=== PATIENT | female | born 1950 | race Caucasian/White ===

== ENCOUNTER → 2019-02-03 | Outpatient (CLI) | payer MEDICARE, SELFPAY ==
[2018-12-30 10:52] VITALS: BMI 24.4
--- NOTE | 2019-02-03 15:23 | BI_ITS ---
MAMMOGRAPHY - BILATERAL SCREENING REASON FOR EXAM: Female, 68 years old. Routine annual screening examination. PERTINENT HISTORY: Non-contributory. TECHNIQUE: Digital bilateral breast ferd (3D mammographic acquisition) in the CC and MLO projections. 2-D mediolateral oblique (MLO) and craniocaudad (CC) views of both breasts were obtained. CAD: Full Field Digital Mammography with Computer Added Detection was performed. COMPARISON: Comparison is made with prior outside examination dated December 30, 2017. FINDINGS: Breast Composition: The breasts are heterogeneously dense, which may obscure small masses. There are no dominant masses or suspicious calcifications. No other significant abnormalities are identified. There has been no significant change since the prior study. BI/SCREEN MAMM (CAD) W/FRED BILAT IMPRESSION: Stable bilateral screening mammogram. Yearly follow-up mammogram recommended. (A) ASSESSMENT CATEGORY: BIRADS Category 1: Negative. A letter regarding these results will be sent to the patient by the facility within 30 days. Approximately 10% of breast cancers are not detected by mammography. A normal mammogram should not delay biopsy of a clinically suspicious abnormality. [id number] Electronically Signed: Ethan Navarrete, at 8:27 EDT , Service support ,
== END | disposition home or self-care (01) ==
LOC: OPBI 15:21
PROVIDERS: Family Provider Family Medicine; PCP Family Medicine; Referring Provider Nurse Practitioner Women's Health; Visit Provider Nurse Practitioner Women's Health
DX: Z12.31 Encounter for screening mammogram for malignant neoplasm of breast (principal)
CPT/HCPCS: 77063; 77067

== ENCOUNTER 2020-11-10 06:40 | Outpatient (RCR) | payer MEDICARE, SELFPAY ==
[2018-12-30 10:52] VITALS: BMI 24.4
[2020-11-10] MEDS: COVID-19 VACC, MRNA(PFIZER)/PF 30 MCG/0.3 ML SYRINGE IM (09:48)
[2020-12-01] MEDS: COVID-19 VACC, MRNA(PFIZER)/PF 30 MCG/0.3 ML SYRINGE IM (09:32)
== END 2020-11-10 23:59 ==
LOC: IMMUN 06:40
PROVIDERS: PCP Family Medicine; Referring Provider Family Medicine; Visit Provider Family Medicine
DX: Z23 Encounter for immunization (principal)
CPT/HCPCS: 0001A; 0002A

== ENCOUNTER 2021-09-12 11:52 | Outpatient (CLI) | payer MEDICARE, SELFPAY ==
--- NOTE | 2021-09-12 11:56 | BI_ITS ---
MAMMOGRAPHY - BILATERAL SCREENING REASON FOR EXAM: Female, 70 years old. Routine annual screening examination. PERTINENT HISTORY: Non-contributory. TECHNIQUE: Digital bilateral breast fred (3D mammographic acquisition) in the CC and MLO projections. 2-D mediolateral oblique (MLO) and craniocaudad (CC) views of both breasts were obtained. CAD: Full Field Digital Mammography with Computer Added Detection was performed. COMPARISON: Comparison is made with prior study dated 02/03/2019. FINDINGS: Breast Composition: The breasts are heterogeneously dense, which may obscure small masses. There are no dominant masses or suspicious calcifications. No other significant abnormalities are identified. There has been no significant change since the prior study. BI/SCRN MAMM (CAD)W/FRED BILAT IMPRESSION: Stable bilateral screening mammogram. Yearly follow-up mammogram recommended. (A) ASSESSMENT CATEGORY: BIRADS Category 1: Negative. A letter regarding these results will be sent to the patient by the facility within 30 days. Approximately 10% of breast cancers are not detected by mammography. A normal mammogram should not delay biopsy of a clinically suspicious abnormality. [id number] Electronically Signed: Ethan Navarrete MD at 14:00 EST , Service support ,
== END 2021-09-12 23:59 | disposition short-term general hospital (02) ==
LOC: OPBI 11:54
PROVIDERS: PCP Family Medicine; Referring Provider Nurse Practitioner Women's Health; Visit Provider Nurse Practitioner Women's Health
DX: Z12.31 Encounter for screening mammogram for malignant neoplasm of breast (principal)
CPT/HCPCS: 77063; 77067

== ENCOUNTER → 2022-09-13 | Outpatient (CLI) | payer MEDICARE, SELFPAY ==
--- NOTE | 2022-09-13 09:37 | BI_ITS ---
MAMMOGRAPHY - BILATERAL SCREENING REASON FOR EXAM: Female, 71 years old. Routine annual screening examination. PERTINENT HISTORY: Non-contributory. TECHNIQUE: Digital bilateral breast fred (3D mammographic acquisition) in the CC and MLO projections. 2-D mediolateral oblique (MLO) and craniocaudad (CC) views of both breasts were obtained. CAD: Full Field Digital Mammography with Computer Added Detection was performed. COMPARISON: Comparison is made with prior study dated 09/12/2021 and 02/03/2019. FINDINGS: Breast Composition: The breasts are heterogeneously dense, which may obscure small masses. There are no dominant masses or suspicious calcifications. No other significant abnormalities are identified. There has been no significant change since the prior study. BI/SCRN MAMM (CAD)W/FRED BILAT IMPRESSION: Stable bilateral screening mammogram. Yearly follow-up mammogram recommended. (A) ASSESSMENT CATEGORY: BIRADS Category 1: Negative. A letter regarding these results will be sent to the patient by the facility within 30 days. Approximately 10% of breast cancers are not detected by mammography. A normal mammogram should not delay biopsy of a clinically suspicious abnormality. [id number] Electronically Signed: Ethan Navarrete MD at 10:31 EST ,
== END | disposition home or self-care (01) ==
LOC: OPBI 09:36
PROVIDERS: PCP Family Medicine; Visit Provider Nurse Practitioner Women's Health
DX: Z12.31 Encounter for screening mammogram for malignant neoplasm of breast (principal)
CPT/HCPCS: 77063; 77067

== ENCOUNTER → 2023-09-16 | Outpatient (CLI) | payer MEDICARE, SELFPAY ==
--- NOTE | 2023-09-16 10:04 | BI_ITS ---
MAMMOGRAPHY - BILATERAL SCREENING REASON FOR EXAM: Female, 72 years old. Routine annual screening examination. PERTINENT HISTORY: Non-contributory. TECHNIQUE: Digital bilateral breast fred (3D mammographic acquisition) in the CC and MLO projections. 2-D mediolateral oblique (MLO) and craniocaudad (CC) views of both breasts were obtained. CAD: Full Field Digital Mammography with Computer Added Detection was performed. COMPARISON: Comparison is made with prior study. 2022 and September 12, 2021. FINDINGS: Breast Composition: The breasts are heterogeneously dense, which may obscure small masses. There are no dominant masses or suspicious calcifications. No other significant abnormalities are identified. There has been no significant change since the prior study. BI/SCRN MAMM (CAD)W/FRED BILAT IMPRESSION: Stable bilateral screening mammogram. Yearly follow-up mammogram recommended. (A) ASSESSMENT CATEGORY: BIRADS Category 1: Negative. A letter regarding these results will be sent to the patient by the facility within 30 days. Approximately 10% of breast cancers are not detected by mammography. A normal mammogram should not delay biopsy of a clinically suspicious abnormality. [id number] Electronically Signed: Ethan Navarrete MD at 8:51 EST ,
--- OUTSIDE RECORDS SUMMARY | 2023-09-16 10:36 | XMS RPT_ITS | CCD ---
Author Name Unknown Address [facility] [employer] [id number] [place] [address] Organization [facility] Care Team Providers Care Top Dyeing Machine Tender Name Role Phone MELINDA BURROUGHS MD Primary Care Physician MELINDA BURROUGHS MD Attending Unavailable MELINDA BURROUGHS MD Primary Care Unavailable MELINDA BURRUOGHS MD Attending Unavailable MELINDA BURROUGHS MD Primary Care Unavailable Allergies Allergy Classification Reported Allergen(s) Allergy Type Date of Onset Reaction(s) Facility (2 sources) Clindamycin; Translations: [clindamycin] Drug Allergy Eruption of skin (disorder) [facility] (2 sources) Penicillin; Translations: [penicillins] Drug Allergy hives, rash, swelling [facility] Problems Problem Classification Problem Date Documented Da te Episodic/Chronic Malaise and fatigue (2 sources) Fatigue 07-31-2022 Episodic Other injuries and conditions due to external causes (2 sources) Foreign body in auditory canal 11-03-2019 Episodic Unclassified (2 sources) Patient encounter status 07-31-2022 Results Test Name Value Interpretation Reference Range Facil ity Encounters Encounter Date Encounter Type Care Provider Facility Start: 08-20-2022 End: 08-21-2022 ambulatory MELINDA BURROUGHS MD Facility:B Start: 08-20-2022 End: 08-20-2022 Patient encounter procedure MELINDA BURROUGHS MD [facility] Start: 08-07-2022 End: 08-08-2022 ambulatory MELINDA BURROUGHS MD Facility:B Start: 08-07-2022 End: 08-07-2022 Patient encounter procedure MELINDA BURROUGHS MD [facility] Procedures Date Procedure Procedure Detail Performing Clinician Start: 01-09-2018 Flexible fiberoptic sigmoidoscopy MELINDA BURROUGHS MD Start: 09-09-2012 Excision of lipoma o f shoulder MELINDA BURROUGHS MD Start: 09-09-2007 Colonoscopy MELINDA CARRERA MD Appendectomy MELINDA Whitman History of left oophorectomy MELINDA BURROUGHS MD History of tonsillectomy MICHEL BURROUGHS MD Immunizations Immunization Date Immunization Notes Care Provider [facility] 07-20-2022 influenza virus vaccine, unspecified formulation MELINDA BURROUGHS MD [facility] 06-01-2022 SARS-CoV-2 mRNA (tozinameran) vaccine MELINDA BURROUGHS MD [facility] 07-20-2021 influenza virus vaccine, unspecified formulation MELINDA BURROUGHS MD [facility] 06-09-2021 SARS-CoV-2 mRNA (tozinameran) vaccine MELINDA BURROUGHS MD [facility] 12-01-2020 SARS-CoV-2 mRNA (tozinameran) vaccine MELINDA BURROUGHS MD [facility] 11-10-2020 SARS-CoV-2 mRNA (tozinameran) vaccine MELINDA BURROUGHS MD [facility] Payers Date Payer Category Payer Unknown [id number] 1950 Unknown [id number] 1950 Unknown [id number] Social History Date Type Detail Facility Start: 11-03-2019 Tobacco smoking status Never s moked tobacco (finding) [facility] Sex Assigned At Female [facility] Clinical Note 08-20-2022 Note Date & Type Note Facility 08-20-2022 Note ORIGINAL EXAMINATION: BONE DENSITOMETRY 08/20/2022 2:31 pm TECHNIQUE: A bone density dual x-ray absorptiometry (DEXA) scan was performed of the lumbar spine and left hip. COMPARISON: DEXA 07/08/2020 HISTORY: ORDERING SYSTEM PROVIDED HISTORY: Reason for Exam: Osteoporosis Screening FINDINGS: BMD (g/cm2) Lumbar Spine L1-L4: 0.765. T Score Lumbar Spine L1-L4: -2.6 BMD (g/cm2) Left Femoral Neck: 0.637. T Score Left Femoral Neck: -1.9 BMD (g/cm2) Left Hip: 0.816. T Score Left Hip: -1.0 BMD Change from previous Hip: -8.8% BMD Change from previous Lumbar spine: No significant change IMPRESSION: Osteoporosis by WHO criteria. *By the World Health Organization criteria: (Comparing with young normal sex matched population) - Normal: T-score at or above -1 SD (standard deviation) - Osteopenia: T-score between -1 and -2.5 SD - Osteoporosis: T-score at or below -2.5 SD I have personally reviewed the images of this examination and agree with the resident's findings and interpretation. Interpreted by: Tate Moore DO Preliminary Report By: Shaila Fleming Electronically signed By Tate Moore DO Dictated Date: 08/20/2022 2:40:28 PM Prelim Date: 08/20/2022 3:06:36 PM Sign Date: 08/20/2022 3:06:36 PM Ordering Provider: MELINDA BURROUGHS [facility] Clinical Note 08-20-2022 Note Date & Type Note Facility 08-20-2022 Note ORIGINAL EXAMINATION: BONE DENSITOMETRY 08/20/2022 2:31 pm TECHNIQUE: A bone density dual x-ray absorptiometry (DEXA) scan was performed of the lumbar spine and left hip. COMPARISON: DEXA 07/08/2020 HISTORY: ORDERING SYSTEM PROVIDED HISTORY: Reason for Exam: Osteoporosis Screening FINDINGS: BMD (g/cm2) Lumbar Spine L1-L4: 0.765. T Score Lumbar Spine L1-L4: -2.6 BMD (g/cm2) Left Femoral Neck: 0.637. T Score Left Femoral Neck: -1.9 BMD (g/cm2) Left Hip: 0.816. T Score Left Hip: -1.0 BMD Change from previous Hip: -8.8% BMD Change from previous Lumbar spine: No significant change IMPRESSION: Osteoporosis by WHO criteria. *By the World Health Organization criteria: (Comparing with young normal sex matched population) - Normal: T-score at or above -1 SD (standard deviation) - Osteopenia: T-score between -1 and -2.5 SD - Osteoporosis: T-score at or below -2.5 SD I have personally reviewed the images of this examination and agree with the resident's findings and interpretation. Interpreted by: Tate Moore DO Preliminary Report By: Shaila Fleming Electronically signed By Tate Moore DO Dictated Date: 08/20/2022 2:40:28 PM Prelim Date: 08/20/2022 3:06:36 PM Sign Date: 08/20/2022 3:06:36 PM Ordering Provider: MELINDA BURROUGHS [facility] Evaluation + Plan note Radiology Note Date & Type Note Facility Evaluation + Plan note Future Appointments Appointment Date:08/20/2022 02:30:00 PM Scheduled Provider: Location:[facility] Appointment Type:BD Bone Density DEXA Axial Skeleton Future Scheduled TestsBD Bone Density DEXA Axial Skeleton 08/20/22 [facility] Hospital course Narrative Note Date & Type Note Facility Hospital course Narrative No data available for this section [facility] Hospital Discharge instructions Note Date & Type Note Facility Hospital Discharge instructions No data available for this section [facility] Progress note Note Date & Type Note Facility Progress note No data available for this section [facility] Summary Purpose Family History No Family History Records Found Advance Directives No Advanced Directives Records Found Additional Source Comments Care Team (unrecognized sect ion and content) Care Team Personnel Name: MELINDA BURROUGHS MD Position: P4 Physician - Primary Care Member Role: Primary Care Physician Address: Address: [facility] [address] Care Team Related Persons Name: AMADO SOLIS Care Team Personnel Name: MELINDA BURROUGHS MD Position: P4 Physician - Primary Care Member Role: Primary Care Physician Address: Address: [facility] [address] Care Team Related Persons Name: AMADO SOLIS INFORMATION SOURCE (unrecogn ized section and content) FOR RECORDS PERTAINING TO PATIENTS WHO ARE OR HAVE BEEN ENROLLED IN A CHEMICAL DEPENDENCY/SUBSTANCEABUSE PROGRAM, SOME INFORMATION MAY BE OMITTED. This clinical summary was aggregated from multiple sources. Caution should be exercised in using it in the provision of clinical care. This summary normalizes information from multiple sources, and as a consequence, information in this document may materially change the coding, format and clinical context of patient data. In addition, data may be omitted in some cases. CLINICAL DECISIONS SHOULD BE BASED ON THE PRIMARY CLINICAL RECORDS. [facility] [employer] [facility]. provides no warranty or guarantee of the accuracy or completeness of information in this document.
== END | disposition home or self-care (01) ==
LOC: OPBI 10:04
PROVIDERS: PCP Family Medicine; Referring Provider Nurse Practitioner Women's Health; Visit Provider Nurse Practitioner Women's Health
DX: Z12.31 Encounter for screening mammogram for malignant neoplasm of breast (principal)
CPT/HCPCS: 77063; 77067

== ENCOUNTER → 2024-09-17 | Outpatient (CLI) | payer MEDICARE, SELFPAY ==
--- NOTE | 2024-09-17 14:07 | BI_ITS ---
MAMMOGRAPHY - BILATERAL SCREENING REASON FOR EXAM: Female, 73 years old. Routine annual screening examination. PERTINENT HISTORY: Non-contributory. TECHNIQUE: Digital bilateral breast fred (3D mammographic acquisition) in the CC and MLO projections. 2-D mediolateral oblique (MLO) and craniocaudad (CC) views of both breasts were obtained. CAD: Full Field Digital Mammography with Computer Added Detection was performed. COMPARISON: Comparison is made with prior study dated September 16, 2023 and September 13, 2022. FINDINGS: Breast Composition: The breasts are heterogeneously dense, which may obscure small masses. There are no dominant masses or suspicious calcifications. Stable bilateral fat containing axillary lymph nodes. No other significant abnormalities are identified. There has been no significant change since the prior study. BI/SCRN MAMM (CAD)W/FRED BILAT IMPRESSION: Stable bilateral screening mammogram. Yearly follow-up mammogram recommended. (A) ASSESSMENT CATEGORY: BIRADS Category 2: Benign. A letter regarding these results will be sent to the patient by the facility within 30 days. Approximately 10% of breast cancers are not detected by mammography. A normal mammogram should not delay biopsy of a clinically suspicious abnormality. [id number] Electronically Signed: Ethan Navarrete MD at 14:54 EST ,
== END | disposition home or self-care (01) ==
LOC: OPBI 14:06
PROVIDERS: PCP Family Medicine; Referring Provider Nurse Practitioner Women's Health; Visit Provider Nurse Practitioner Women's Health
DX: Z12.31 Encounter for screening mammogram for malignant neoplasm of breast (principal)
CPT/HCPCS: 77063; 77067

== ENCOUNTER 2025-03-01 08:52 | Inpatient (IN) | payer MEDICARE, SELFPAY ==
[2025-03-01] VITALS (13 sets, daily range): BP systolic 132–179; BP diastolic 61–87; PULSE 54–60; RESP 11–18; TEMP -17.7–36.8; O2SAT 99–100; BMI 22.2; BMI 19.3
--- NOTE | 2025-03-01 08:55 | CT_ITS ---
PROCEDURE: STROKE BRAIN/HEAD WITHOUT CONT 03/01/2025 REASON FOR EXAM: NEURO DEFICIT, ACUTE, STROKE SUSPECTED TECHNIQUE: STROKE BRAIN/HEAD WITHOUT CONT Coronal and Sagittal reconstruction series were provided. One or more dose reduction techniques were used (e.g., Automated exposure control, adjustment of the mA and/or kV according to patient size, use of iterative reconstruction technique. RADIATION DOSE SUMMARY: CTDlvol: 44.99 mGy DLP: 812.98 mGycm COMPARISON: None FINDINGS: Brain: Low density in the periventricular white matter suggests mild chronic small vessel ischemic changes. Focal hypodensity seen in the insular cortex of the right temporal lobe. This may represent localized ischemic change. CSF Spaces: Mild generalized cerebral atrophy Sinuses/Mastoids: Clear at visualized levels Bones: Unremarkable CT/STROKE Brain/Head without Cont IMPRESSION: Focal decreased attenuation in the insular cortex of the right temporal lobe. Ischemic change should be ruled out. Red Alert: FOCAL HYPODENSITY rIGHT INSULAR CORTEX The critical information above was relayed directly by me by telephone to Otto Szymanski on 03/01/2025 at 9:05 am with readback verification. Reading Location: [id number]
--- NOTE | 2025-03-01 08:55 | CT_ITS ---
PROCEDURE: STROKE CTA HEAD AND NECK W/CON 03/01/2025 REASON FOR EXAM: NEURO DEFICIT, ACUTE, STROKE SUSPECTED TECHNIQUE: STROKE CTA HEAD AND NECK W/CON Multiplanar Sagittal and Coronal images were obtained. CONTRAST: Isovue 370 VOLUME: 100 mL One or more dose reduction techniques were used (e.g., Automated exposure control, adjustment of the mA and/or kV according to patient size, use of iterative reconstruction technique). RADIATION DOSE SUMMARY: CTDlvol: 15.2 mGy DLP: 508.62 mGycm COMPARISON: Prior CT scan of the head done earlier in the day. FINDINGS: Aortic Arch: Normal size and branching pattern. No significant atherosclerotic plaque. Brachiocephalic and Subclavians: Unremarkable RIGHT Carotid: Right CCA: Unremarkable. Right ICA: Unremarkable. Right ECA: Unremarkable. LEFT Carotid: Left CCA: Unremarkable. Left ICA: Unremarkable. Left ECA: Unremarkable. Vertebrals: Codominant. Arise from the subclavians. Both vertebrals form the basilar. RIGHT Vertebral: Unremarkable. LEFT Vertebral: Unremarkable. Anatomy: [place] anatomy is normal. Aneurysm or avm: No intracranial aneurysms or large vascular malformations are identified. Anterior cerebral arteries: Unremarkable: Middle cerebral arteries: Unremarkable. Basilar artery: Unremarkable. Posterior cerebral arteries: Unremarkable. Other major branches of the posterior circulation: Unremarkable. Major venous structures: Unremarkable. Other findings: Diffuse heterogeneous enlargement of the thyroid gland more prominent on the left side with a substernal extension. CT/STROKE CTA Head AND Neck W/Con IMPRESSION: No significant stenosis seen. Diffuse heterogeneous enlargement of thyroid worse on the left side with subste rnal extension on the left side. Red Alert: No sig stenosis seen The critical information above was relayed directly by me by telephone to Otto Szymanski on 03/01/2025 at 9:28 am with readback verification. Reading Location: [id number]
--- NOTE | 2025-03-01 08:55 | EKG12_ITS ---
Test Reason : STROKE ALERT Blood Pressure : */* mmHG Vent. Rate : 60 BPM Atrial Rate : 60 BPM P-R Int : 158 ms QRS Dur : 88 ms QT Int : 408 ms P-R-T Axes : 42 -11 28 degrees QTcB Int : 408 ms Normal sinus rhythm Inferior infarct , age undetermined Cannot rule out Anterior infarct , age undetermined Abnormal ECG Confirmed by TIKI MEZA, CARLOS ([id number]), rewrite editor AVEL LAIRD ([id number]) on 03/02/2025 11:04:41 AM Referred By: Confirmed By: CARLOS FAIRBANKS MD
--- NOTE | 2025-03-01 09:10 | EDS_ITS ---
HPI History of Present Illness Chief Complaint: Stroke Alert Narrative Narrative: Patient is a 74-year-old female with a past medical history of goiter thyroid, lichen sclerosus who presented to the emergency department with a chief complaint of left facial droop, left arm weakness and falling to the left with changes of vision out of her left eye. Patient states that her symptoms started around 8:45 AM when she was walking through the store she states that her had to help her. By the time she arrived here to the emergency department she states that her symptoms have resolved. She states that she has never had anything this happen before. Patient denies any blood thinning medications. [facility] Medical History Goiter Age related osteoporosis Uterine cyst Chronic bronchitis Infertility Lichen sclerosus Home Medications ?Medication ?Instructions ?Recorded ?Last Taken ?Type estradiol 0.01% (0.1 mg/gram) See Rx Instructions vagi nal 04/30/24 02/27/25 Rx vaginal cream (Estrace) .COMPLEX #42.5 grams cholecalciferol (vitamin D3) 1,250 50,000 unit PO .COM PLEX 03/01/25 02/25/25 History mcg (50,000 unit) capsule mecobalamin (vitamin B12) 1,000 1,000 mcg PO DAILY 03/01/25 History mcg lozenges vitamin K2 45 mcg capsule 45 mcg PO DAILY 03/01/25 History Allergy/AdvReac Type Severity Reaction Status Date / Time Penicillins Allergy Severe Angioedema Verified 03/01/25 09:23 Family History Grandmother Diabetes Mother Lung fibrosis Father , from Heart Attack at age 66 Heart disease Grandfather Heart disease Surgical History History of left oophorectomy H/O unilateral salpingectomy Hx of tonsillectomy History of appendectomy Social History Smoking Status: Never smoker alcohol intake: current alcohol intake frequency: holidays/special occasions only Alcohol type: wine substance use type: does not use caffeine: Yes (1) Type: coffee what type of physical activity do you participate in: walking frequency: 3-4 times per week ROS ROS ED ROS Narrative Constitutional: Denies headache, lightness, dizzy, fevers, chills Eyes: Complaint of a left change in vision as noted above but states that this is resolved denies any double vision currently Cardiovascular: Denies chest pain or palpitations Respiratory: Denies coughing wheezing shortness of breath Abdomen: Denies abdominal pain nausea vomit diarrhea : Denies urinary symptoms Neurological: Complains of left-sided facial droop, left arm weakness and falling to the left while walking store which has since resolved she states Musculoskeletal: Denies back pain Skin: Denies any rashes or lesions EXAM Physical Exam Narrative Exam Narrative: General: Patient was lying in bed rest comfortably did not appear to be in acute distress Head: Atraumatic, normocephalic Eyes: PERRL bilaterally, EOMI blood, no conjunctival injection noted Neck: Soft, supple, trachea midline Cardiovascular: Regular rate and rhythm Respiratory: Clear to auscultation bilaterally Abdomen: Soft, nondistended, nontender to palpation Extremities: +5/5 strength noted in the bilateral upper and lower extremities, radial pulses +2/4 in the bilateral extremities, no pedal edema on exam Neurological: Patient following commands knew that she was at [facility] year is 2024 NIH is 0 GCS 15 Skin: Warm, dry, tact no rashes lesions noted Const Vital Signs: 03/01/25 08:55 03/01/25 08:55 03/01/25 09:24 Temperature 0 F L 98.2 F Temperature Source Oral Oral Pulse Rate 60 Respiratory Rate 12 Blood Pressure 179/87 H Blood Pressure Mean 117 Pulse Ox 100 Oxygen Delivery Method Room Air Room Air 03/01/25 09:25 03/01/25 09:30 03/01/25 09:30 Temperature Temperature Source Pulse Rate 58 L 59 L 59 L Respiratory Rate 12 11 L 11 L Blood Pressure 158/76 H 158/74 H 158/74 H Blood Pressure Mean 103 102 102 Pulse Ox 100 100 100 Oxygen Delivery Method Room Air Room Air Room Air 03/01/25 10:00 03/01/25 10:30 03/01/25 10:49 Temperature 98.2 F Temperature Source Pulse Rate 57 L 57 L 57 L Respiratory Rate 18 16 18 Blood Pressure 152/72 H 150/74 H 150/74 H Blood Pressure Mean 98 99 99 Pulse Ox 99 100 100 Oxygen Delivery Method Room Air Room Air MDM MDM MDM Narrative Medical decision making narrative: Patient is a 74-year-old female who presented to the emergency department with a chief complaint of left-sided facial droop, left arm weakness and left leg weakness as well as falling to the left while walking and changes in vision of her left eye. On the differential diagnosis includes but not limited to ischemi c stroke, hemorrhagic stroke, TIA, hypoglycemia, ACS. Once workup is obtained reviewed she will be reevaluated. Stroke alert was called in triage and I went out and evaluated the patient by the time she arrived here to the emergency department her symptoms have resolved therefore she is not a tenecteplase candidate. Patient was evaluated by neurologist Dr. Meek who agrees patient is not a tenect eplase candidate and is recommending admission to the hospital for further stroke workup. Patient be given 325 mg aspirin. Patient's CBC reviewed showed no evidence leukocytosis white blood count 5.8, hemoglobin 13.3, plate count 288. Patient's coagulation studies pending chemistries pending at this point time. Patient's CT head and brain without contrast showed focal decreased attenuation in the insular cortex of the right temporal lobe ischemic change should be ruled out. Patient CTA head and neck reviewed showed no significant stenosis diffuse heterogeneous enlargement of thyroid worse on the left side with substernal extension on the left side.Patient coagulation panel normal, sodium normal 134, potassium normal 4.3, creatinine was 0.60. Patient troponin normal at less than 6, EKG reviewed and showed sinus rhythm with a rate of 60 bpm. Patient's thyroid studies pending. Will discuss case with hospitalist for admission for stroke workup. Spoke with hospitalist Dr. Tijerina who accept the patient for admission. Discussed this with the patient and significant other bedside they are agreeable this plan. Critical care time 37 minutes. Lab Data Labs: Laboratory Results - last 24 hr 03/01/25 09:18 WBC 5.8 RBC 4.42 Hgb 13.3 Hct 39.2 MCV 88.7 MCH 30.1 MCHC 33.9 RDW Std Deviation 37.7 RDW Coeff of Ronald 11.7 Plt Count 288 MPV 8.9 Immature Gran % (Auto) 0.300 Neut % (Auto) 41.7 L Lymph % (Auto) 40.2 [place] % (Auto) 12.9 H Eos % (Auto) 4.0 Baso % (Auto) 0.9 Absolute Neuts (auto) 2.4 Absolute Lymphs (auto) 2.34 Nucleated RBC % 0 PT 13.4 INR 1.0 APTT 26.3 Sodium 134 Potassium 4.3 Chloride 100 Carbon Dioxide 25.4 Anion Gap 9 BUN 13 Creatinine 0.60 L Estim Creat Clear Calc 47.97 L Est GFR (MDRD) Non-Af 95 BUN/Creatinine Ratio 21.0 H Glucose 84 Calcium 9.2 Troponin T High Sens < 6 Radiography Diagnostic Testing: Clinical Impression(s) from Imaging Studies Brain CT 03/01/25 08:55 IMPRESSION: Focal decreased attenuation in the insular cortex of the right temporal lobe. Ischemic change should be ruled out. Red Alert: FOCAL HYPODENSITY rIGHT INSULAR CORTEX The critical information above was relayed directly by me by telephone to Otto Barragan on 03/01/2025 at 9:05 am with readback verification. Reading Location: [id number] Head/Neck CTA 03/01/25 08:55 IMPRESSION: No significant stenosis seen. Diffuse heterogeneous enlargement of thyroid worse on the left side with substernal extension on the left side. Red Alert: No sig stenosis seen The critical information above was relayed directly by me by telephone to Otto Barragan on 03/01/2025 at 9:28 am with readback verification. Reading Location: [id number] Chest X-Ray 03/01/25 10:00 IMPRESSION: Lungs appear clear of acute disease. No pleural effusion is seen. No pneumothorax is evident. The cardiomediastinal silhouette is within the normal range for technique. No acute osseous changes seen. No evidence of acute cardiopulmonary disease. Reading Location: [facility] Discharge Plan Triage Chief Complaint: Stroke Alert ED Provider: Otto Barragan Dx/Rx/DC Orders Clinical Impression: Left arm weakness, Left leg weakness, Blurry vision, left eye, Brain TIA Prescriptions: No Action mecobalamin (vitamin B12) 1,000 mcg lozenge 1,000 mcg PO DAILY Patient Comments: pt unsure of strength, but knows it low otc dose cholecalciferol (vitamin D3) 1,250 mcg (50,000 unit) capsule 50,000 unit PO .COMPLEX Patient Comments: pt took last daily dose 02/25 and planned to start 2 cap weekly course this afternoon Rx Instructions: 50,000 units orally qd x7d then 2 caps 1xw x3w; vitamin K2 45 mcg capsule 45 mcg PO DAILY Patient Comments: taking with vit d estradiol [Estrace] 0.01 % (0.1 mg/gram) cream See Rx Instructions Vaginal .COMPLEX Qty: 42.5 2RF Dose Instruction: pea sized amount VAGINAL every other day X 4 weeks then twice a week; Rx Instructions: pea sized amount VAGINAL twice a week; Primary Care Provider: Christiano Baca Referrals: Christiano Baca MD [Primary Care Provider] - Print Language: Libyan Disposition Disposition: Acute Care Hospital [facility]
[2025-03-01 09:25] LABS: Absolute Lymphocyte Count 2.34 X10^3/uL (0.83-4.51); Absolute Neutrophil Count 2.4 X10^3/uL (2.0-7.7); Basophil# 0.05 X10^3/uL; Basophil% 0.9 % (0-1); Eosinophil# 0.23 X10^3/uL; Hematocrit 39.2 % (37-47); Hemoglobin 13.3 g/dL (12.0-15.0); Lymphocyte # 2.34 X10^3/ul (0.83-4.51); Lymphocyte % 40.2 % (19-41); Mean Corp Hgb Conc 33.9 g/dL (32-36); Mean Corpuscular Hgb 30.1 pg (27.0-32.0); Mean Corpuscular Volume 88.7 fL (81-99); Mean Platelet Vol. 8.9 fl (6.2-12.0); Monocyte# 0.75 X10^3/uL; Monocyte% 12.9 % (0-10); NRBC Flagged by Analyzer 0 % (0-5); Neutrophil # 2.43 X10^3/uL (2.7-7.7); Neutrophil % 41.7 % (47-70); Platelet Count 288 K/mm3 (150-450); RBC Distribution Width CV 11.7 % (11.6-14.6); RBC Distribution Width SD 37.7 fl (35.1-43.9); Red Blood Count 4.42 M/mm3 (4.2-5.4); White Blood Count 5.8 K/mm3 (4.4-11.0)
[2025-03-01 09:38] LABS: Prothrombin Time (Protime)PT. 13.4 SECONDS (11.7-14.9)
[2025-03-01 09:39] LABS: Partial Thromboplast Time 26.3 Seconds (24.1-36.2)
--- NOTE | 2025-03-01 10:00 | RAD_ITS ---
PROCEDURE: CHEST 1 VIEW 03/01/2025 REASON FOR EXAM: NEURO DEFICIT, ACUTE, STROKE SUSPECTED TECHNIQUE: Frontal view of the chest. COMPARISON: None RAD/Chest 1 View IMPRESSION: Lungs appear clear of acute disease. No pleural effusion is seen. No pneumothorax is evident. The cardiomediastinal silhouette is within the normal range for technique. No acute osseous changes seen. No evidence of acute cardiopulmonary disease. Reading Location: [place] [id number]
[2025-03-01] MEDS: Aspirin 325 MG Tablet PO (10:06)
[2025-03-01 10:14] LABS: Anion Gap 9 (5-15); BUN 13 mg/dL (4-19); Calcium,Total 9.2 mg/dL (7.6-11.0); Carbon Dioxide 25.4 mmol/L (21.0-32.0); Chloride 100 mmol/L (98-108); EST Glomerular Filtration Rate 95 (>60); Estimated Creatinine Clearance 47.97 ml/min (50-250); Glucose 84 mg/dL (70-99); Potassium 4.3 mmol/L (3.3-5.1); Sodium Level 134 mmol/L (133-145); Troponin T High Sensitivity < 6 ng/L (<=14)
--- NOTE | 2025-03-01 11:10 | MRI_ITS ---
EXAM: BRAIN WITHOUT CONTRAST CLINICAL HISTORY: RIGHT SIDED ISCHEMIC STROKE COMPARISON: March 01, [address] TECHNIQUE: Multiplanar, multisequence MR images of the brain were obtained without gadolinium contrast material. FINDINGS: No intracranial hemorrhage, mass, mass effect, midline shift or pathologic extra- axial fluid collection. No hydrocephalus. The finding in the insular region on the right has appearance of the prominent Virchow Collin space, versus chronic lacunar infarct measuring 0.6 x 0.3 cm. There is no significant white matter disease. No areas of restricted diffusion to suggest acute ischemia or infarction. No gradient signal blooming artifacts are identified. No cerebellar tonsillar ectopia. No sellar/suprasellar signal abnormalities. The ocular globes and intraorbital soft tissues are symmetrically unremarkable. Paranasal sinuses are essentially clear. MRI/Brain without Contrast IMPRESSION: The finding in the insular region on the right has appearance of the prominent Virchow Collin space, versus chronic lacunar infarct measuring 0.6 x 0.3 cm. There is no significant white matter disease. No acute intracranial abnormality is identified. Reading Location: [facility]
--- NOTE | 2025-03-01 11:10 | ECHOD_ITS ---
Reason For Study Reason For Study: TIA/CVA Procedure This was a 2D Doppler, Color Flow transthoracic echocardiogram. Exam performed portable in patient room. Left Ventricle Normal LV size. The left ventricular ejection fraction is 70 %. Stage 2 diastolic dysfunction. No regional wall motion abnormalities noted. Right Ventricle Normal RV size. Normal systolic function. Atria Normal left atrium. Normal right atrium. Mitral Valve Normal mitral valve. Tricuspid Valve Normal tricuspid valve. Aortic Valve Trisinus/trileaflet aortic valve. Pulmonic Valve Normal pulmonic valve. Great Vessels Normal aortic root. The pulmonary artery is normal size. Inferior vena cava collapse with respiration. Pericardium/Pleural No pericardial effusion. MMode/2D Measurements & Calculations LVIDd: 4.2 cm IVSd: 0.90 cm LVOT diam: 2.0 cm LVIDs: 2.7 cm LVPWd: 0.83 cm LVOT area: 3.1 cm2 FS: 35.8 % LAV(MOD-bp): 33.2 ml LVAd ap4: 16.7 cm2 SV(MOD-sp4): 25.7 ml LAV(MOD-bp) Indexed: 22.1 ml/m2 LVLd ap4: 6.4 cm SI(MOD-sp4): 17.1 ml/m2 LAV(MOD-sp2): 29.8 ml EDV(MOD-sp4): 35.8 ml LAV(MOD-sp4): 35.0 ml EDV(sp4-el): 36.9 ml LVAs ap4: 7.7 cm2 LVLs ap4: 5.2 cm ESV(MOD-sp4): 10.1 ml ESV(sp4-el): 9.8 ml EF(MOD-sp4): 71.7 % EF(sp4-el): 73.4 % SV(sp4-el): 27.1 ml LA A4 area: 14.1 cm2 LA dimension(2D): 3.5 cm RA A4 area: 11.1 cm2 Time Measurements MV dec time: 0.17 sec Doppler Measurements & Calculations MV E max bro: 94.8 cm/sec Lat Peak E' Bro: 10.2 cm/sec Med Peak E' Bro: 8.4 cm/sec MV A max bro: 80.1 cm/sec E/E' lat: 9.3 E/E' med: 11.3 MV E/A: 1.2 MV V2 max: 93.4 cm/sec Ao V2 max: 134.6 cm/sec MV max P.5 mmHg MV dec slope: 544.7 cm/sec2 Ao max P.3 mmHg MV V2 mean: 52.2 cm/sec Ao V2 mean: 92.6 cm/sec MV mean P.3 mmHg Ao mean P.9 mmHg MV V2 VTI: 33.7 cm Ao V2 VTI: 30.9 cm AV (velocity ratio): 0.75 MVA(VTI): 2.1 cm2 JASON(I,D): 2.3 cm2 JASON(V,D): 2.4 cm2 LV V1 max: 104.1 cm/sec SV(LVOT): 70.7 ml PA V2 max: 100.5 cm/sec LV V1 max P.4 mmHg PA V2 mean: 68.1 cm/sec LV V1 mean P.7 mmHg LV V1 mean: 58.4 cm/sec LV V1 VTI: 23.1 cm ECHO/Echo Complete Interpretation Summary Normal LV size. The left ventricular ejection fraction is 70 %. Stage 2 diastolic dysfunction. Structurally normal valves. Ordering Physician: Sergio Tijerina Referring Physician: MELINDA BURROUGHS Performed By: Hattie Mendez RCS
[2025-03-01 11:23] LABS: Free T3 2.7 pg/mL (2.18-3.98); Thyroid Stim Hormone (TSH) 0.766 uIU/mL (0.300-4.200)
[2025-03-01 12:07] LABS: Troponin T High Sens 2 HR < 6 ng/L (<=14)
[2025-03-01 12:51] LABS: Hemoglobin A1c 5.1 % (<=5.6)
[2025-03-01 13:10] LABS: Cholesterol 244 mg/dL (<=200); High Density Lipoprotein 83 mg/dL; Low Density Lipoprotein Calc. 129 mg/dL; Triglycerides 161 mg/dL; Very Low Density Lipoprotein 32 mg/dL (5-40); cholesterol:hdl ratio screen 2.95
[2025-03-01 14:21] LABS: Troponin T High Sens 4 HR < 6 ng/L (<=14)
[2025-03-01 16:30] LABS: Bedside Glucose 89 mg/dL (74-106)
--- NOTE | 2025-03-01 16:37 | CASEMGMT ---
Care Management Face to Face with patient for initial transition planning/care coordination assessment in the ED.? This web content writer introduced self and role at [facility]. Patient alert and oriented. Patient willing to participate in assessment and is able to answer all questions appropriately.? Care providers, pharmacy, and demographics verified. Admitting Diagnosis: ischemic stroke Other diagnosis history: ?osteoporosis, lichen sclerosus PCP: Keven Specialists: Denton kelly ? Endocrinology Preferred Pharmacy: [facility] Insurance: ?[employer] Prescription Benefit: yes Living Will/HPOA: ?completed LNOK: Living Arrangements: ?patient lives with in [facility], reports to being independent with ADLs and IADLs Transportation: ?patient drives DME: ?none HHC: none SNF/Rehab: ?none Community Resources: ?none Behavioral Health History: ?none Patient goals: Patient wishes to discharge home, denies need for home health care at this time. Patient denies any further needs or concerns at this time. Disposition Plan: admission to acute; RN CM/SW to follow for discharge planning needs that may arise. Erlinda Cao, SOCIAL SERVICE ASSISTANT, CARTON INSPECTOR
--- NOTE | 2025-03-01 16:53 | PCM.HP.STD ---
HPI - General General Date of Admission: 03/01/25 Date of Service: 03/01/25 Chief Complaint: Left-sided weakness, ataxia, left facial droop HPI Narrative MARTINE SOLIS, is a 74 F who presents to the emergency room at [facility] with complaints of left-sided weakness, left facial droop, and ataxia lasting for a few minutes today while she was at a grocery store in the parking lot. By the time the patient arrived at the hospital, the symptoms had resolved, stroke team was called and patient underwent a CT of the brain which showed a questionable abnormality in the right temporal lobe suspicious for ischemia. CTA of the head and neck showed no evidence of large vessel occlusive disease. There was noted to be enlargement of the thyroid gland however worse on the left side with substernal extension on the left side. CBC and chemistry profile was unremarkable. Patient was given aspirin 325 mg in the emergency room. Patient was admitted to PCU for suspected right-sided ischemic stroke, she will be seen by PT OT and speech therapy, she will also be seen by neurology in consultation. Patient was placed on 81 mg aspirin per day and a statin. Lipid profile will be obtained. [facility] Medical History Goiter Age related osteoporosis Uterine cyst Chronic bronchitis Infertility Lichen sclerosus Home Medications ?Medication ?Instructions ?Recorded ?Last Taken ?Type cholecalciferol (vitamin D3) 1,250 50,000 unit PO .COMPLEX 03/01/25 02/25/25 History mcg (50,000 unit) capsule osteroprosis estradiol 0.01% (0.1 mg/gram) 1 appful vaginal .tufri hormone 03/01/25 02/27/25 History vaginal cream (Estrace) mecobalamin (vitamin B12) 1,000 1,000 mcg PO DAILY suppliments 03/01/25 03/01/25 History mcg lozenges vitamin K2 45 mcg capsule 45 mcg PO DAILY suppliment 03/01/25 02/25/25 History Allergy/AdvReac Type Severity Reaction Status Date / Time Penicillins Allergy Severe Angioedema Verified 03/01/25 09:23 Family History Grandmother Diabetes Mother Lung fibrosis Father , from Heart Attack at age 66 Heart disease Grandfather Heart disease Surgical History History of left oophorectomy H/O unilateral salpingectomy Hx of tonsillectomy History of appendectomy Social History (Updated 03/01/25 @ 12:48 by Candelaria Wei) Smoking Status: Never smoker alcohol intake: current alcohol intake frequency: holidays/special occasions only Alcohol type: wine substance use type: does not use caffeine: Yes (1) Type: coffee what type of physical activity do you participate in: walking frequency: 3-4 times per week ROS Constitutional Constitutional: Denies anorexia, change in weight, chills, fatigue, fever(s), night sweats or weakness Eyes Eyes: Reports blurry vision left; Denies change in vision, discharge from eye(s) or eye pain Cardiovascular Cardiovascular: Denies chest pain, claudication, dyspnea on exertion, edema or palpitations Respiratory/Chest Respiratory/Chest: Denies cough, hemoptysis, shortness of breath at rest or shortness of breath with exertion Gastrointestinal Gastrointestinal: Denies abdominal pain, constipation, diarrhea, hematemesis, hematochezia, melena, nausea or vomiting Genitourinary Genitourinary: Denies dysuria, hematuria, urinary frequency, urinary hesitancy, urinary incontinence or urinary urgency Musculoskeletal Musculoskeletal: Denies back pain, joint pain, joint stiffness, joint swelling, myalgias or neck pain Neurologic Neurologic: Reports abnormal gait, focal weakness and other visual disturbances; Denies abnormal speech, dizziness, headache(s), loss of vision, numbness, paresthesias, syncope or tingling Psychiatric Psychiatric: Denies anxiety, cognitive impairment, depression, irritability, mood swings or suicidal ideation Endocrine Endocrinology: Denies change in body appearance, cold intolerance, excessive sweating, heat intolerance, polydipsia or polyuria Hematologic/Lymphatic Hematologic/Lymphatic: Denies none, anemia, easy bleeding, easy bruising or lymphadenopathy Allergic/Immunologic Allergic/Immunologic: Denies rhinitis, urticaria, eczemia or asthma Vital Signs Vital Signs Vital Signs: 03/01/25 08:55 03/01/25 08:55 03/01/25 09:24 Temperature 0 F L 98.2 F Temperature Source Oral Oral Pulse Rate 60 Respiratory Rate 12 Respiratory Effort Respiratory Depth Respiratory Pattern Blood Pressure 179/87 H Blood Pressure Mean 117 Blood Pressure Source Blood Pressure Position Blood Pressure Location Pulse Ox 100 Oxygen Delivery Method Room Air Room Air 03/01/25 09:25 03/01/25 09:30 03/01/25 09:30 Temperature Temperature Source Pulse Rate 58 L 59 L 59 L Respiratory Rate 12 11 L 11 L Respiratory Effort Respiratory Depth Respiratory Pattern Blood Pressure 158/76 H 158/74 H 158/74 H Blood Pressure Mean 103 102 102 Blood Pressure Source Blood Pressure Position Blood Pressure Location Pulse Ox 100 100 100 Oxygen Delivery Method Room Air Room Air Room Air 03/01/25 10:00 03/01/25 10:30 03/01/25 10:49 Temperature 98.2 F Temperature Source Pulse Rate 57 L 57 L 57 L Respiratory Rate 18 16 18 Respiratory Effort Respiratory Depth Respiratory Pattern Blood Pressure 152/72 H 150/74 H 150/74 H Blood Pressure Mean 98 99 99 Blood Pressure Source Blood Pressure Position Blood Pressure Location Pulse Ox 99 100 100 Oxygen Delivery Method Room Air Room Air 03/01/25 11:00 03/01/25 11:30 03/01/25 12:39 Temperature 98.3 F Temperature Source Oral Pulse Rate 58 L 55 L 54 L Respiratory Rate 18 14 14 Respiratory Effort Respiratory Depth Respiratory Pattern Blood Pressure 150/70 H 145/70 H 138/61 H Blood Pressure Mean 96 95 86 Blood Pressure Source Monitor Blood Pressure Position Semi-Fowlers Blood Pressure Location Right Arm Pulse Ox 99 100 100 Oxygen Delivery Method Room Air Room Air Room Air 03/01/25 13:08 Temperature Temperature Source Pulse Rate Respiratory Rate Respiratory Effort Normal Non-Labored Respiratory Depth Normal Respiratory Pattern Normal Blood Pressure Blood Pressure Mean Blood Pressure Source Blood Pressure Position Blood Pressure Location Pulse Ox Oxygen Delivery Method Room Air Weight Weight: 53.2 kg Body Mass Index (BMI) 19.3 Physical Exam Const alert, oriented x3, no apparent distress, average body habitus and healthy appearing Constitutional Narrative: Patient appears younger than her stated age General Appearance: cooperative, well kempt and well developed Orientation / Consciousness: awake, oriented to person, oriented to place and oriented to time HEENT normocephalic, head/scalp atraumatic and moist oral mucous membranes Eyes PERRL, EOMs intact bilaterally and conjunctivae normal Neck supple, no JVD, thyroid normal and no carotid bruits General: trachea midline Resp normal respiratory effort, no retractions, no use of accessory muscles and clear to auscultation bilaterally Auscultation: Negative for rales, rhonchi or wheezes Cardio regular rate, regular rhythm, S1 normal heart sound, S2 normal heart sound, no murmurs, no rub and no gallops GI normal to inspection, nondistended, normoactive bowel sounds, soft to palpation, non-tender and non-distended Extremity no clubbing, cyanosis or edema Skin no rashes or lesions noted General Skin Exam: no breakdown Neuro oriented x3, CN's II-XII intact bilaterally, moves all extremities, no focal motor deficits and no sensory deficits noted Sensorium / Orientation: awake and alert Speech: speech normal Psych affect normal Results Lab / Micro Data 03/01/25 09:18 03/01/25 09:18 Labs: Laboratory Results - last 24 hr 03/01/25 08:54: POC Glucose 89 03/01/25 09:18: WBC 5.8, RBC 4.42, Hgb 13.3, Hct 39.2, MCV 88.7, MCH 30.1, MCHC 33.9, RDW Std Deviation 37.7, RDW Coeff of Ronald 11.7, Plt Count 288, MPV 8.9, Immature Gran % (Auto) 0.300, Neut % (Auto) 41.7 L, Lymph % (Auto) 40.2, [place] % (Auto) 12.9 H, Eos % (Auto) 4.0, Baso % (Auto) 0.9, Absolute Neuts (auto) 2.4, Absolute Lymphs (auto) 2.34, Nucleated RBC % 0, PT 13.4, INR 1.0, APTT 26.3, Sodium 134, Potassium 4.3, Chloride 100, Carbon Dioxide 25.4, Anion Gap 9, BUN 13, Creatinine 0.60 L, Estim Creat Clear Calc 47.97 L, Est GFR (MDRD) Non-Af 95, BUN/Creatinine Ratio 21.0 H, Glucose 84, Hemoglobin A1c 5.1, Calcium 9.2, Troponin T High Sens < 6, Triglycerides 161, Cholesterol 244 H, LDL Cholesterol, Calc 129, VLDL Cholesterol 32, HDL Cholesterol 83, Cholesterol/HDL Ratio 2.95, TSH 0.766, Free T4 1.20, Free T3 pg/dL 2.7 03/01/25 11:25: Troponin T Hi Sens 2 Hr < 6 03/01/25 13:21: Troponin T Hi Sens 4Hr < 6 Imaging Radiology Impression Brain CT 03/01/25 08:55 IMPRESSION: Focal decreased attenuation in the insular cortex of the right temporal lobe. Ischemic change should be ruled out. Red Alert: FOCAL HYPODENSITY rIGHT INSULAR CORTEX The critical information above was relayed directly by me by telephone to Otto Barragan on 03/01/2025 at 9:05 am with readback verification. Reading Location: [id number] Head/Neck CTA 03/01/25 08:55 IMPRESSION: No significant stenosis seen. Diffuse heterogeneous enlargement of thyroid worse on the left side with substernal extension on the left side. Red Alert: No sig stenosis seen The critical information above was relayed directly by me by telephone to Otto Barragan on 03/01/2025 at 9:28 am with readback verification. Reading Location: [id number] Chest X-Ray 03/01/25 10:00 IMPRESSION: Lungs appear clear of acute disease. No pleural effusion is seen. No pneumothorax is evident. The cardiomediastinal silhouette is within the normal range for technique. No acute osseous changes seen. No evidence of acute cardiopulmonary disease. Reading Location: [facility] Brain MRI 03/01/25 11:10 IMPRESSION: The finding in the insular region on the right has appearance of the prominent Virchow Collin space, versus chronic lacunar infarct measuring 0.6 x 0.3 cm. There is no significant white matter disease. No acute intracranial abnormality is identified. Reading Location: [facility] Echocardiogram 03/01/25 11:10 Interpretation Summary Normal LV size. The left ventricular ejection fraction is 70 %. Stage 2 diastolic dysfunction. Structurally normal valves. Ordering Physician: Sergio Tijerina Referring Physician: MELINDA BURROUGHS Performed By: Hattie Mendez RCS Assessment & Plan Assessment/Plan (1) Ischemic stroke: PLAN: Plan 1. Suspected right sided temporal lobe ischemic stroke-patient was admitted to PCU, she was placed on 81 mg aspirin daily and 80 mg Lipitor daily, she will be seen by PT OT and speech therapy, she will also be seen by neurology. MRI of the brain was ordered. Lipid profile was ordered. #2 osteoporosis-patient takes vitamin D as an outpatient, this will be held during her hospitalization, I do not think it is necessary for her to take vitamin D while she is hospitalized. Total clinical time spent by myself addressing the patient's medical issues, reviewing all of her data, and collaborating with patient's care team: 55 minutes Charges/Coding Visit Charges Inpatient E&M: 35947 Init Hosp L2
[2025-03-01] MEDS: Clopidogrel Bisulfate 300 MG Tablet PO (18:32)
[2025-03-01] MEDS: Atorvastatin Calcium 80 MG Tablet PO (21:42)
[2025-03-02 03:17] VITALS: BP 125/73; PULSE 52; RESP 18; TEMP 36.3; O2SAT 99
[2025-03-02 06:14] LABS: Cholesterol 228 mg/dL (<=200); High Density Lipoprotein 86 mg/dL; Low Density Lipoprotein Calc. 128 mg/dL; Triglycerides 74 mg/dL; Very Low Density Lipoprotein 15 mg/dL (5-40); cholesterol:hdl ratio screen 2.66
[2025-03-02 09:50] VITALS: BP 135/64; PULSE 57; RESP 17; TEMP 36.6; O2SAT 100
[2025-03-02] MEDS: Aspirin 81 MG TAB.CHEW PO (09:52)
[2025-03-02] MEDS: Clopidogrel Bisulfate 75 MG Tablet PO (09:52)
[2025-03-02 10:00] VITALS: RESP 17; O2SAT 100
--- NOTE | 2025-03-02 13:24 | CON.PCM.NE_ITS ---
Assessment and Plan: Stroke Assessment/Plan MARTINE SOLIS, is a 74 F w/ no PMH who presents with left side weakness and slurred speech. Lasted about 5 min. Resolved upon arrival. Never happened before. No recent illness or new meds. CTH/CTA neg. MRI brain neg. Presentation likely secondary to TIA. TTE neg. Recommend ASA 81mg and high intensity statin. Plavix 75mg only for 3 weeks. 30d event monitor. F/u with pcp and neuro after dc. No further recs. Please reachout for any questions or concerns. Stroke to sign off. HPI Consult Data Date of Consult: 03/02/25 HPI Narrative HPI Narrative: MARTINE SOLIS, is a 74 F w/ no PMH who presents with left side weakness and slurred speech. Lasted about 5 min. Resolved upon arrival. Never happened before. No recent illness or new meds. CTH/CTA neg. MRI brain neg. Presentation likely secondary to TIA. TTE neg. Recommend ASA 81mg and high intensity statin. Plavix 75mg only for 3 weeks. 30d event monitor. F/u with pcp and neuro after dc. No further recs. Please reachout for any questions or concerns. Stroke to sign off. [facility] Medical History Goiter Age related osteoporosis Uterine cyst Chronic bronchitis Infertility Lichen sclerosus Home Medications ?Medication ?Instructions ?Recorded ?Last Taken ?Type cholecalciferol (vitamin D3) 1,250 50,000 unit PO .COM PLEX 03/01/25 02/25/25 History mcg (50,000 unit) capsule osteroprosis estradiol 0.01% (0.1 mg/gram) 1 appful vaginal .tufri hormone 03/01/25 02/27/25 History vaginal cream (Estrace) mecobalamin (vitamin B12) 1,000 1,000 mcg PO DAILY sup pliments 03/01/25 03/01/25 History mcg lozenges vitamin K2 45 mcg capsule 45 mcg PO DAILY suppliment 0 03/01/25 02/25/25 History Allergy/AdvReac Type Severity Reaction Status Date / Time Penicillins Allergy Severe Angioedema Verified 03/01/25 09:23 Family History Grandmother Diabetes Mother Lung fibrosis Father , from Heart Attack at age 66 Heart disease Grandfather Heart disease Surgical History History of left oophorectomy H/O unilateral salpingectomy Hx of tonsillectomy History of appendectomy Social History (Updated 03/01/25 @ 12:48 by Candelaria Wei) Smoking Status: Never smoker alcohol intake: current alcohol intake frequency: holidays/special occasions only Alcohol type: wine substance use type: does not use caffeine: Yes (1) Type: coffee what type of physical activity do you participate in: walking frequency: 3-4 times per week Vital Signs Vital Signs Vital Signs: 03/01/25 16:39 03/01/25 17:38 03/01/25 17:47 Temperature 98.2 F Temperature Source Oral Pulse Rate 58 L Respiratory Rate 16 17 Respiratory Effort Normal Non-Labored Respiratory Depth Normal Respiratory Pattern Normal Blood Pressure 132/70 H Blood Pressure Mean 90 Blood Pressure Source Monitor Blood Pressure Position Semi-Fowlers Blood Pressure Location Right Arm Pulse Ox 100 Oxygen Delivery Method Room Air Room Air Room Air 03/01/25 20:46 03/01/25 21:38 03/02/25 03:17 Temperature 98.1 F 97.4 F L Temperature Source Oral Temporal Pulse Rate 56 L 52 L Respiratory Rate 18 18 Respiratory Effort Normal Non-Labored Respiratory Depth Normal Respiratory Pattern Normal Blood Pressure 146/68 H 125/73 H Blood Pressure Mean 94 90 Blood Pressure Source Monitor Monitor Blood Pressure Position Semi-Fowlers Semi-Fowlers Blood Pressure Location Left Arm Right Arm Pulse Ox 99 99 Oxygen Delivery Method Room Air Room Air Room Air 03/02/25 04:04 03/02/25 07:35 03/02/25 09:50 Temperature 98 F Temperature Source Temporal Pulse Rate 57 L Respiratory Rate 17 Respiratory Effort Respiratory Depth Respiratory Pattern Blood Pressure 135/64 H Blood Pressure Mean 87 Blood Pressure Source Monitor Blood Pressure Position Semi-Fowlers Blood Pressure Location Left Arm Pulse Ox 100 Oxygen Delivery Method Room Air Room Air Room Air 03/02/25 10:00 Temperature Temperature Source Pulse Rate Respiratory Rate 17 Respiratory Effort Normal Non-Labored Respiratory Depth Normal Respiratory Pattern Normal Blood Pressure Blood Pressure Mean Blood Pressure Source Blood Pressure Position Blood Pressure Location Pulse Ox 100 Oxygen Delivery Method Room Air Weight Weight: 53.2 kg Body Mass Index (BMI) 19.3 Physical Exam Narrative Physical Exam: - General: NAD, pleasant, cooperative, well nourished, well developed - Head/Eyes: Atraumatic, normocephalic, clear cornea, normal sclera/conjunctive - Neuro: ? Mental Status: AAOX4 & following simple commands. ? Speech: Clear and fluent with good repetition, comprehension, & naming. No aphasia or dysarthria ? CN II: Visual huston are full to confrontation. ? CN III, IV, : EOMI, no gaze preference, no nystagmus, no ptosis ? CN V: Facial sensation is intact to light touch throughout. ? CN VII: Face is symmetric with normal eye closure and smile. ? CN VII: Hearing is grossly normal to conversational speech. ? CN XI: Head turning, and shoulder shrug are intact. ? CN XII: Tongue is midline with normal movements and no atrophy. ? Motor: Able to sustatin all limbs, but mild drift in LLE. ? Sensation: Normal to light touch bilaterally. ? Coordination: Normal FTN & HTS. No abn movements seen. NIH 0 Lab / Micro Data 03/01/25 09:18 03/01/25 09:18 Labs: Laboratory Results - last 24 hr 03/01/25 08:54: POC Glucose 89 03/01/25 13:21: Troponin T Hi Sens 4Hr < 6 03/02/25 05:23: Triglycerides 74, Cholesterol 228 H, LDL Cholesterol, Calc 128, VLDL Cholesterol 15, HDL Cholesterol 86, Cholesterol/HDL Ratio 2.66 Imaging Radiology Impression Echocardiogram 03/01/25 11:10 Interpretation Summary Normal LV size. The left ventricular ejection fraction is 70 %. Stage 2 diastolic dysfunction. Structurally normal valves. Ordering Physician: Sergio Tijerina Referring Physician: MELINDA BURROUGHS Performed By: Hattie Mendez RCS Active Medications Active Medications Active Medications: Current Medications Generic Name Dose Route Start Last Admin Trade Name Freq PRN Reason Stop Dose Admin Acetaminophen 650 mg 03/01/25 12:27 Acetaminophen 325 Mg Tablet PO Q4H PRN PRN Pain 1-10 Or Fever>99.6 Aspirin 81 mg 03/02/25 08:00 03/02/25 09:52 Aspirin 81 Mg Tab.Chew PO 81 mg BREAKFAST KELLY Administration Atorvastatin Calcium 80 mg 03/01/25 22:00 03/01/25 21:42 Atorvastatin Calcium 80 Mg Tablet PO 80 mg QHS KELLY Administration Clopidogrel Bisulfate 75 mg 03/02/25 10:00 03/02/25 09:52 Clopidogrel Bisulfate 75 Mg Tablet PO 75 mg DAILY KELLY Administration Sodium Chloride 250 mls @ 15 mls/hr 03/01/25 12:29 IV .[id number] PRN Saline Flush Sodium Chloride 250 mls @ 15 mls/hr 03/01/25 12:29 IV .[id number] PRN Additional IVPB Infusion Iopamidol 0 ml 03/01/25 09:00 03/02/25 09:49 Contrast Allergy Safety Check IV Not Given X1 KELLY Sodium Chloride 10 - 40 ml 03/01/25 12:29 0.9% Saline Lock 10 Ml Syringe IV UD PRN SALINE FLUSH NIHSS NIHSS Nursing Documentation NIHSS Nursing Documentation: NIHSS: Ischemic Stroke/TIA Start: 03/01/25 12:27 Text: For PCU Patients: NIH and Neuro Check every 4 Status: Complete hours, PRN and with change in RN caregiver. Freq: [id number] Protocol: Activity Type Activity Date Activity User E-sign Co-sign Detail Recorded Client Recorded Date Recorded By Document 03/01/25 12:39 DS [id number] 03/01/25 12:43 DS 03/01/25 12:39 NIH Stroke Scale [NIHSS] A score of 0 is normal or asymptomatic . Total possible score is 42. Inpatient: RN or Physician to activate a stroke alert for onset of new stroke symptoms or with NIHSS increase >/= 3 points. Following change in neurological status, NIHSS will be performed per physician order or more frequently PRN. -1a. Level of Consciousness 0 - Alert; keenly responsive -1b. LOC Questions 0 - Answers BOTH questions correctly -1c. LOC Commands 0 - Performs BOTH tasks correctly -2. Best Gaze 0 - Normal -3. Visual 0 - No visual loss -4. Facial Palsy 0 - Normal symmetrical movements -5a. Left Arm 0 - No drift; arm holds 90 ( or 45) degrees for full 10 seconds -5b. Right Arm 0 - No drift; arm holds 90 ( or 45) degrees for full 10 seconds -6a. Left Leg 0 - No drift; leg holds 30- degree position for full 5 seconds -6b. Right Leg 0 - No drift; leg holds 30- degree position for full 5 seconds -7. Limb Ataxia 0 - Absent -8. Sensory 0 - Normal; no sensory loss -9. Best Language 0 - No aphasia; normal -10. Dysarthria 0 - Normal -11. Extinction and Inattention 0 - No abnormality -Total 0 Query Text:A score of 0 is normal or asymptomatic. Total possible score is 42 . ED: Notify Physician for NIHSS increase by > / = 3 points. Inpatient: RN or Physician to activate a stroke alert for NIHSS increase of > / = 3 points. Coma Scale [Assess] -Eye Opening Spontaneous -Motor Obeys Commands -Verbal Oriented [Total] -Coma Scale Total 15
--- NOTE | 2025-03-02 13:35 | CASEMGMT ---
SW did not complete a PHQ9 as patient did not have a Stroke. Joan NAQVI
--- NOTE | 2025-03-02 13:36 | PCM.DC ---
Discharge Instructions Diet Discharge Diet: No restrictions DC O2, CPAP, BIPAP needs Home O2 Discharge instructions: No Dressing / Incision Discharge Activity: Return to Normal Activity Weight Bearing Status: Full weight bearing Follow Up Care Test Results: Test results from this visit will be discussed in further detail at your follow-up appointment, if applicable. Discharge Plan Admission Admit Date/Time: 03/01/25 10:58 Primary Reason for Your Visit: TIA Attending Provider: Sergio Tijerina Primary Care Provider: Christiano Baca Consulting Providers: Héctor Askew; Cortes Weaver; Linsey Barrios; Keke Walsh; Aleida Christian; Axel Villarreal; Susie Hobbs; Maury Chapin; Lauro Paris; Ruben Lawton; Krystal Phillips; Johan Raphael; Gwendolyn Vizcaino; Raman Crews; Shyla Marcelo; Jarrod Etienne; Chele Jones; Regan Dumont; Sosa Meek; Jordan Paulino Discharge Orders/Prescriptions Prescriptions: New aspirin 81 mg Tablet,Chewable 81 mg PO BREAKFAST Qty: 0 0RF atorvastatin [Lipitor] 40 mg tablet 40 mg PO DAILY Qty: 30 0RF clopidogrel 75 mg Tablet 75 mg PO DAILY Qty: 21 0RF Rx Instructions: Take 1 daily for 3 weeks then stop this medication-start on 03/03/2025 Continued mecobalamin (vitamin B12) 1,000 mcg lozenge 1,000 mcg PO DAILY Patient Comments: pt unsure of strength, but knows it low otc dose cholecalciferol (vitamin D3) 1,250 mcg (50,000 unit) capsule 50,000 unit PO .COMPLEX Patient Comments: pt took last daily dose 02/25 and planned to start 2 cap weekly course this afternoon Rx Instructions: 50,000 units orally qd x7d then 2 caps 1xw x3w; vitamin K2 45 mcg capsule 45 mcg PO DAILY Patient Comments: taking with vit d estradiol [Estrace] 0.01 % (0.1 mg/gram) cream 1 appful Vaginal . Patient Comments: takes saturday and saturday Rx Instructions: pea sized amount VAGINAL twice a week; Other Ambulatory Orders: 30 Day Event Recorder Preventi (Routine) Timeframe: 1 Day Facility: [facility] - Location: Cardiovascular Services Ordered By: Dr. Sergio Tijerina Referrals / Follow Up: Christiano Baca MD [Primary Care Provider] - See Referral Note (In 2 weeks) Disposition Disposition (needs filled in before D/C Order can be placed): Home, Self Care
[2025-03-02 13:43] VITALS: BP 122/78; PULSE 70; RESP 17; TEMP 36.6; O2SAT 97
--- NOTE | 2025-03-02 13:43 | PCM.DC.SUM ---
Providers Date of Admission: 03/01/25 Date of Discharge: 03/02/25 Primary Care Physician: Dr. Christiano Burroughs MD Consultations 03/01/25 12:27 Consult: Tele-Neurology Routine Consulting Provider: [facility] Reason for Consult: Acute Ischemic Stroke/TIA EMERGENT Consult: No MD Notified: Yes Date Notified: 03/01/25 Time Notified: 12:44 Method of Notification: Answering Service Nursing Unit Staff Notify [facility] of Tele-Neurology Consult: Yes Reason For Visit: ISCHEMIC STROKE Diagnosis Discharge Diagnosis (1) Ischemic stroke: Status: Acute Code(s): I63.9 - Cerebral infarction, unspecified Plan 1. Transient ischemic attack #2 osteoporosis-patient takes vitamin D as an outpatient, this will be held during her hospitalization, I do not think it is necessary for her to take vitamin D while she is hospitalized. Total clinical time spent by myself addressing the patient's medical issues, reviewing all of her data, and collaborating with patient's care team: 55 minutes Medications at Discharge Home Medications cholecalciferol (vitamin D3) 1,250 mcg (50,000 unit) capsule 50,000 unit PO .COMPLEX osteroprosis 03/01/25 estradiol 0.01% (0.1 mg/gram) vaginal cream (Estrace) 1 appful vaginal .tufri hormone 03/01/25 mecobalamin (vitamin B12) 1,000 mcg lozenges 1,000 mcg PO DAILY suppliments 03/01/25 vitamin K2 45 mcg capsule 45 mcg PO DAILY suppliment 03/01/25 aspirin 81 mg chewable tablet 81 mg PO BREAKFAST #0 tabs 03/02/25 atorvastatin 40 mg tablet (Lipitor) 40 mg PO DAILY #30 tabs 03/02/25 clopidogrel 75 mg tablet 75 mg PO DAILY #21 tabs 03/02/25 Hospital Course Operations None Procedures 2-D Echocardiogram Summary of Care Provided Minutes Spent on Discharge: 31 Hospital Course: This 74-year-old white female was seen in the emergency room at [facility] after having a transient episode of left-sided weakness, ataxia, and left facial droop. By the time she was brought into the hospital by her , these symptoms had disappeared, stroke team was called and she was not felt to be a candidate for tenecteplase, CT's scan of her brain showed a questionable abnormality in the right temporal lobe region suspicious for ischemia. Patient was admitted to PCU for possible stroke, NIH scores were monitored and she was seen by PT OT and speech therapy, echocardiogram was obtained which was unremarkable. MRI was obtained of the brain which did not show evidence of a stroke-there was noted to be in appearance in the insular region on the right side of the prominent Virchow Collin space. Patient was seen by teleneurology and they recommended aspirin and Plavix for 21 days then dropping off the Plavix, statin, and recommended a 30-day Holter monitor. On 03/02/2025, patient was seen and examined: On examination she appeared in good health and spirits, she does not appear to be in any distress. Vital signs as documented. Skin warm and dry and without overt rashes. Neck without JVD, thyroid appears normal, trachea is midline, neck is supple. Lungs clear, normal air movement was noted. Heart exam notable for regular rhythm, normal sounds and absence of murmurs, rubs or gallops. Abdomen unremarkable and without evidence of organomegaly, masses, or abdominal aortic enlargement, bowel sounds are present in all 4 quadrants, no abdominal tenderness was noted. Extremities nonedematous, no cyanosis was noted, no clubbing was noted. Neuro: Cranial nerves II through XII are grossly intact, no focal motor deficits were noted, sensation to light touch and pinprick is intact, motor exam 5/5 throughout. Psych: Patient is alert and oriented x3, she does not appear anxious or depressed, she does not appear agitated. Patient appears stable for discharge home on 02/26/2025. Weight / BMI Weight Weight: 53.2 kg Body Mass Index (BMI) 19.3 ABG / Lab / Microbiology Data 03/01/25 09:18 03/01/25 09:18 Laboratory: Laboratory Results - last 24 hr 03/01/25 08:54: POC Glucose 89 03/01/25 13:21: Troponin T Hi Sens 4Hr < 6 03/02/25 05:23: Triglycerides 74, Cholesterol 228 H, LDL Cholesterol, Calc 128, VLDL Cholesterol 15, HDL Cholesterol 86, Cholesterol/HDL Ratio 2.66 Radiography Diagnostic Testing: Radiology Impression Echocardiogram 03/01/25 11:10 Interpretation Summary Normal LV size. The left ventricular ejection fraction is 70 %. Stage 2 diastolic dysfunction. Structurally normal valves. Ordering Physician: Sergio Tijerina Referring Physician: CHRISTIANO BURROUGHS Performed By: Hattie Mendez RCS D/C Instructions Discharge Diet: No restrictions Weight Bearing Status: Full weight bearing DC O2, CPAP, BIPAP Needs Home O2 Discharge instructions: No Meaningful Use Info Meaningful Use Meaningful Use Diagnoses (Choose all that apply): None applicable Ischemic Stroke Statin Dosing Therapy Reference: STATIN DOSE THERAPY REFERENCE: * Patients > 75 years receive moderate or high dose statin therapy. * Patients 75 years or YOUNGER should receive HIGH intensity statin dose unless contraindicated. You will be required to document reason for non-treatment if statin daily dose does not meet guidelines. HIGH DOSE STATIN THERAPY DAILY Atorvastatin > than or = to 40 mg Rosuvastatin > than or = to 20 mg Amlodipine + Atorvastatin > than or = to 2.5/40 mg Ezetimibe + Simvastatin 10/80 mg Simvastatin 80mg Discharge Plan Admission Admit Date/Time: 03/01/25 10:58 Primary Reason for Your Visit: TIA Attending Provider: Sergio Tijerina Primary Care Provider: Christiano Burroughs Consulting Providers: Héctor Askew; Cortes Weaver; Linsey Barrios; Keke Walsh; Aleida Christian; Axel Villarreal; Susie Hobbs; Maury Chapin; Lauro Paris; Ruben Lawton; Krystal Phillips; Johan Raphael; Gwendolyn Vizcaino; Raman Crews; Shyla Marcelo; Jarrod Etienne; Chele Jones; Regan Dumont; Sosa Meek; Jordan Paulino Discharge Orders/Prescriptions Prescriptions: New aspirin 81 mg Tablet,Chewable 81 mg PO BREAKFAST Qty: 0 0RF atorvastatin [Lipitor] 40 mg tablet 40 mg PO DAILY Qty: 30 0RF clopidogrel 75 mg Tablet 75 mg PO DAILY Qty: 21 0RF Rx Instructions: Take 1 daily for 3 weeks then stop this medication-start on 03/03/2025 Continued mecobalamin (vitamin B12) 1,000 mcg lozenge 1,000 mcg PO DAILY Patient Comments: pt unsure of strength, but knows it low otc dose cholecalciferol (vitamin D3) 1,250 mcg (50,000 unit) capsule 50,000 unit PO .COMPLEX Patient Comments: pt took last daily dose 02/25 and planned to start 2 cap weekly course this afternoon Rx Instructions: 50,000 units orally qd x7d then 2 caps 1xw x3w; vitamin K2 45 mcg capsule 45 mcg PO DAILY Patient Comments: taking with vit d estradiol [Estrace] 0.01 % (0.1 mg/gram) cream 1 appful Vaginal . Patient Comments: takes saturday and saturday Rx Instructions: pea sized amount VAGINAL twice a week; Other Ambulatory Orders: 30 Day Event Recorder Preventi (Routine) Timeframe: 1 Day Facility: [facility] - Location: Cardiovascular Services Ordered By: Dr. Sergio Tijerina Referrals / Follow Up: Christiano Burroughs MD [Primary Care Provider] - See Referral Note (In 2 weeks) Disposition Disposition (needs filled in before D/C Order can be placed): Home, Self Care Charges/Coding Visit Charges Inpatient E&M: 83247 Disch Hosp >30min
[2025-03-02 14:00] VITALS: BMI 19.3
--- NOTE | 2025-03-02 14:20 | CASEMGMT ---
Patient has order for discharge. RN CM in to discuss needs at discharge. Patient denies needs or help at discharge. Patient had no further questions or concerns.
--- NOTE | 2025-03-02 15:21 | PHA.DC.MR.R ---
Pharmacy [facility] Med Reconciliation Pharmacy Service has performed discharge medication reconciliation for this patient. Medication education papers prepared, patient discharged when counseling was attempted. Medications reviewed. The patient's discharge medication list was reviewed for discrepancies and discrepancies were resolved. Medications at Discharge Home Medications cholecalciferol (vitamin D3) 1,250 mcg (50,000 unit) capsule 50,000 unit PO .COMPLEX osteroprosis 03/01/25 estradiol 0.01% (0.1 mg/gram) vaginal cream (Estrace) 1 appful vaginal .tufri hormone 03/01/25 mecobalamin (vitamin B12) 1,000 mcg lozenges 1,000 mcg PO DAILY suppliments 03/01/25 vitamin K2 45 mcg capsule 45 mcg PO DAILY suppliment 03/01/25 aspirin 81 mg chewable tablet 81 mg PO BREAKFAST #0 tabs 03/02/25 atorvastatin 40 mg tablet (Lipitor) 40 mg PO DAILY #30 tabs 03/02/25 clopidogrel 75 mg tablet 75 mg PO DAILY #21 tabs 03/02/25
--- NOTE | 2025-03-02 15:28 | CHAPLAIN ---
Type of Pastoral Visit _x__ Initial Visit ___ Follow-up Visit ___ On-call Visit ___ General Patient Visit ___ Spiritual Assessment ___ Family Conference ___ Bereavement ___ Rapid Response ___ Code Blue ___ Other (describe below) Pastoral Care Referral From _x__ Patient ___ Family ___ Nurse ___ Physician ___ Refrigerating Oiler ___ Pelletizer Operator ___ Other (describe below) Sacrament/Intervention _x__ Active listening ___ Anointing ___ Hindu ___ Bereavement ___ Communion _x__ Maya exploration ___ _x__ Life review _x__ Prayer ___ Reconciliation ___ Sacrament of Sick ___ Supportive presence ___ Wedding ___ Other (describe below) Pastoral Comments patient and spouse are together and about to talk a walk in the hallways; pt says that she is about to be discharged and that tests are completed; pt has met this locomotive repairer diesel in previous meetings and expresses thanks for the support today and in the past; pt gives credit to God and the prayers of family and friends for her good outcome; pt would like to have more definitive answers about why she had an episode like that of yesterday but is moving foward with her maya in God and the help of family; pt and spouse request prayer support
== END 2025-03-02 14:43 | disposition home or self-care (01) | DRG 66 ==
LOC: ED 11:01 → PCU 11:13
PROVIDERS: Admitting Provider Internal Medicine; Emergency Provider Emergency Medicine; PCP Family Medicine; Visit Provider Internal Medicine
DX: I63.89 Other cerebral infarction (principal); H53.8 Other visual disturbances; J42 Unspecified chronic bronchitis; M81.0 Age-related osteoporosis without current pathological fracture; R29.898 Other symptoms and signs involving the musculoskeletal system; Z79.82 Long term (current) use of aspirin; Z79.02 Long term (current) use of antithrombotics/antiplatelets; Z79.899 Other long term (current) drug therapy; Z98.890 Other specified postprocedural states; Z90.49 Acquired absence of other specified parts of digestive tract
CPT/HCPCS: 36415; 70450; 70496; 70498; 70551; 71045; 80048; 80061; 82962; 83036; 84439; 84443; 84481; 84484; 85025; 85610; 85730; 92523; 92610; 93005; 93306; 97162; 97166; 97802; 99285; Q9967; A4216